=== PATIENT | female | born 1960 | race Caucasian/White ===

== ENCOUNTER → 2024-12-30 | Outpatient (CLI) | payer BC, OTHER, SELFPAY ==
--- NOTE | 2024-12-30 15:46 | XR_ITS ---
Examination: PA lateral chest 2 views Technique: Upright PA lateral chest 2 views Date and time: December 30, 2024 1602 hrs. Indications: Wheezing difficulty breathing beginning today. Findings: Moderate hyperexpansion. Mild prominence left ventricle. Opacity in the lingular segment left upper lobe on the lateral view. Prominent osteopenia Impression: COPD Scarring versus pneumonia in the lingular segment left upper lobe, clinical correlation advised
== END | disposition home or self-care (01) ==
LOC: CDIM 15:37
PROVIDERS: PCP Family Medicine; Referring Provider Family Medicine; Visit Provider Family Medicine
DX: J44.9 Chronic obstructive pulmonary disease, unspecified (principal); R91.8 Other nonspecific abnormal finding of lung field
CPT/HCPCS: 71046

== ENCOUNTER → 2025-01-23 | Outpatient (CLI) | payer BC, OTHER, SELFPAY ==
--- NOTE | 2025-01-23 13:15 | XR_ITS ---
Examination: Screening digital mammography, bilateral Computer aided detection 3-D breast Tomosynthesis, bilateral Date and time of exam: January 23, 2025 1326 hours, compared to mammograms dating to March 15, 2011 Indication: Screening Technique: Nonmagnified MLO, CC views of the breasts to been obtained, reconstructed from 3-D Tomosynthesis images. R2 computer aided detection program utilized for evaluation of suspicious masses and/or abnormal calcifications. 3-D Tomosynthesis images obtained. Findings: The breasts are heterogeneously dense, which may obscure small masses Benign calcifications. No interval suspicious masses Impression: BI-RADS category II: Benign Findings. Recommend 1 year follow-up mammogram.
--- NOTE | 2025-01-23 13:40 | XR_ITS ---
Examination: Bone densitometry Date and time of exam:January 23, 2025, 1344 hours INDICATIONS: Menopause age 53 postmenopausal rib and pelvic fractures Technique: Lumbar spine and hip total bone mineralization values of an calculated. Peak reference and age match control results have been displayed. Findings: Lumbar spine total bone mineralization is0.921 gm/cm2. This is 1.1 standard deviations below peak reference. This is 0.5 standard deviations above age-matched controls. Hip total bone mineralization is 0.766 gm/cm2 This is 1.4 standard deviations below peak reference. This is 0.3 standard deviations below age-matched controls Impression: There is osteopenia based on lumbar spine measurements. There is osteopenia based on hip measurements Lumbar mineralization is decreased 6.3% compared with April 07, 2021 Hip mineralization is decreased 4.9% compared with April 07, 2021
== END | disposition home or self-care (01) ==
PROVIDERS: PCP Family Medicine; Referring Provider Family Medicine; Visit Provider Family Medicine
DX: Z12.31 Encounter for screening mammogram for malignant neoplasm of breast (principal); R92.323 Mammographic fibroglandular density, bilateral breasts; R92.1 Mammographic calcification found on diagnostic imaging of breast; M85.89 Other specified disorders of bone density and structure, multiple sites
CPT/HCPCS: 77063; 77067; 77080